=== PATIENT | male | born 1950 | race Caucasian/White ===

== ENCOUNTER 2019-04-04 07:22 | Emergency (ER) | payer MEDICARE ==
[~2019-04-04] VITALS: Ht 182.9 cm; Wt 93.0 kg
[2019-04-04 07:56] LABS: ABSOLUTE EOSINOPHILS 0.4 thou/uL (0.0-0.7); ABSOLUTE LYMPHOCYTES 0.9 thou/uL (0.8-5.3); ABSOLUTE MONOCYTES 0.5 thou/uL (0.0-1.2); ABSOLUTE NEUTROPHILS 3.5 thou/uL (1.6-8.1); BASOPHILS 0.7 %; EOSINOPHILS 7.7 %; HEMATOCRIT 26.5 % (42.0-52.0); HEMOGLOBIN 9.2 gm/dL (14.0-18.0); LYMPHOCYTES 16.6 %; MCH 33.4 pg (26.0-34.0); MCHC 34.5 g/dL (28.0-37.0); MCV 96.8 fL (80.0-100.0); MONOCYTES 8.9 %; MPV 7.7 fl. (7.2-11.1); NUCLEATED RBCS 0 /100WBC; PLATELET COUNT* 87 thou/uL (150-400); POLYS 66.1 %; RBC 2.74 mil/uL (4.50-6.00); RDW-CV 17.4 % (10.5-14.5); WBC 5.2 thou/uL (4.0-11.0)
[2019-04-04 08:28] LABS: INR 1.3; PROTIME 12.8 Seconds (9.20-11.50)
[2019-04-04 08:29] LABS: CREATININE 1.7 mg/dL (0.6-1.3); POTASSIUM 4.3 mmol/L (3.5-5.1)
[2019-04-04 08:40] LABS: ALBUMIN 2.5 g/dL (3.4-5.0); TOTAL BILIRUBIN 2.2 mg/dL (<0.1-1.0); TOTAL PROTEIN 6.9 g/dL (6.4-8.2)
[2019-04-04 10:24] LABS: URINE BILIRUBIN NEGATIVE (Negative); URINE BLOOD NEGATIVE (Negative); URINE CLARITY CLEAR; URINE COLOR YELLOW; URINE GLUCOSE-RANDOM NEGATIVE (Negative); URINE KETONES NEGATIVE (Negative); URINE LEUKOCYTES-REFLEX NEGATIVE (Negative); URINE NITRITE-REFLEX NEGATIVE (Negative); URINE PROTEIN TRACE (Negative); URINE SPECIFIC GRAVITY <= 1.005 (1.005-1.030); URINE UROBILINOGEN 0.2 E.U./dl (0.2-1.0)
--- NOTE | 2019-04-04 10:44 | EKG ---
[place] [address] ELECTROCARDIOGRAM REPORT Name: PAL THOMAS Room: [facility]#: [id number] Admission: 04/04/19 Attend Phys: Discharge: Date of : 54 Report #: [id number] THIS REPORT FOR: //name// [facility] ED Test Date: 2019-04-04 Test Time: 07:35:19 Pat Name: PAL THOMAS Department: Room: Gender: Materials Tech: : 1950 Requested By: Ricardo Drake Order Number: [id number] MD: Pal Frederick Measurements Intervals [place] Rate: 61 P: 16 MI: 190 QRS: -15 QRSD: 102 T: 74 QT: 477 QTc: 481 Interpretive Statements Sinus rhythm Probable left atrial enlargement Left ventricular hypertrophy Borderline prolonged QT interval No previous ECG available for comparison Electronically Signed On 04-04-2019 10:43:47 [employer] by Pal Frederick [email or web address] <ELECTRONICALLY SIGNED> By: Pal Frederick MD, [facility] 04/04/19 1043 0735 0735 Pal Frederick MD, FACC /EPI
[2019-04-04 11:50] VITALS: BP 148/80
== END 2019-04-04 11:50 | disposition short-term general hospital (02) ==
LOC: M.ERS 07:22
PROVIDERS: Emergency Medicine Emergency Medical Services
DX: K72.90 Hepatic failure, unspecified without coma (principal); I10 Essential (primary) hypertension; Z88.0 Allergy status to penicillin